=== PATIENT | female | born 1985 | race African-American/Black ===

== ENCOUNTER 2016-06-22 09:01 | Emergency (ER) | payer MEDICAID, OTHER ==
[~2016-06-22] VITALS: Ht 177.8 cm; Wt 272.2 kg
[~2016-06-22 09:01] MED LIST: FURO20TA; METO25TA62 PO; NOR10T; POTA12PO2; [UNRECOGNIZED DRUG - OTHER]
[2016-06-22] MEDS ORDERED: VANCOMYCIN 1GM/250ML D5W 250 ML IV ONE (09:45)
[2016-06-22 10:24] LABS: Basophils # (auto) 0.1 uL; Basophils % (auto) 0.4 % (0.0-2.0); DEFINITIVE VIEW TRANSMISSION; Eosinophils # (auto) 0.3 uL; Eosinophils % (auto) 2.6 % (0.0-7.0); Hematocrit 36.8 % (36.0-46.0); Hemoglobin 11.7 g/dL (12.2-16.2); Lymphocytes # (auto) 2.3 uL; Lymphocytes % (auto) 19.2 % (10.0-50.0); Mean Corpuscular Hemoglobin 25.6 pg (28.0-32.0); Mean Corpuscular Hgb Conc. 31.8 g/dL (32.0-36.0); Mean Corpuscular Volume 80.5 fL (80.0-100.0); Mean Platelet Volume 9.9 fL (7.4-10.4); Monocytes # (auto) 0.4 uL; Monocytes % (auto) 3.5 % (0.0-12.0); Neutrophils % (auto) 74.3 % (37.0-80.0); Platelet Count (auto) 405 10^3/uL (140-450); Red Cell Distribution Width 19.4 % (11.6-16.0); White Blood Cell 12.1 10^3/uL (4.4-10.8)
[2016-06-22 10:27] LABS: INR 1.02 (0.9-1.15); Partial Thromboplastin Time 27.8 sec (22.64-33.71); Prothrombin Time 10.5 sec (9.37-12.3)
[2016-06-22 10:44] LABS: B-Type Natriuretic Peptide 5.42 pg/mL (0-100)
[2016-06-22 10:47] LABS: Temperature: 21.4 C (20.0-25.0)
[2016-06-22] MEDS ORDERED: ONDANSETRON HCL 4 MG/2 ML VIAL IV ONE (11:30)
[2016-06-22] MEDS ORDERED: MORPHINE SULFATE 4 MG/ML SYRG IV ONE (11:30)
[2016-06-22 11:50] LABS: Albumin 3.2 g/dL (3.4-5.0); Alkaline Phosphatase 93 U/L (45-117); Anion Gap 10 (5-15); BUN/Creatinine Ratio 12.9; Bilirubin, Total 0.8 mg/dL (0.2-1.0); Blood Urea Nitrogen 13 mg/dL (7-18); Calcium 8.8 mg/dL (8.5-10.1); Carbon Dioxide 29 mmol/L (21-32); Chloride 103 mmol/L (98-107); GFR African American 82 mL/min; GFR Non-African American 68 mL/min; Glucose 107 mg/dL (74-106); Potassium 3.9 mmol/L (3.5-5.1); Sodium 142 mmol/L (136-145); Total Protein 9.1 g/dL (6.4-8.2)
[2016-06-22 12:25] LABS: Aspartate Aminotransferase 9 U/L (15-37)
[2016-06-22 12:36] LABS: Anisocytosis Slight; Giant Platelets Few; Hypochromia Slight; Platelet Estimate Adequate
[2016-06-22 13:49] LABS: Urine Bilirubin Negative (Negative); Urine Blood Negative /uL (Negative); Urine Color Yellow (Yellow); Urine Glucose Normal (Normal); Urine Ketone Negative (Negative); Urine Mucus FEW (None Seen); Urine Nitrite Negative (Negative); Urine RBC <1 /hpf (0 - 4); Urine Squamous Epithelial Cell FEW /hpf (<5); Urine Urobilinogen Normal (Negative)
[2016-06-22 17:15] VITALS: BP 143/70
== END 2016-06-22 17:22 | disposition short-term general hospital (02) ==
LOC: ER 09:02
DX: I89.0 Lymphedema, not elsewhere classified (principal); I11.0 Hypertensive heart disease with heart failure; I50.9 Heart failure, unspecified; Z88.0 Allergy status to penicillin; Z88.1 Allergy status to other antibiotic agents; Z88.6 Allergy status to analgesic agent
CPT/HCPCS: 36415; 71010; 80053; 81001; 83605; 83880; 84484; 85025; 85610; 85730; 87040; 93971; 96365; 96366; 96375; 99285; J2270; J2405; J3370

== ENCOUNTER 2016-08-25 00:17 | Emergency (ER) | payer MEDICAID ==
[~2016-08-25] VITALS: Ht 177.8 cm; Wt 249.5 kg
[2016-08-25] MEDS ORDERED: ONDANSETRON HCL 4 MG/2 ML VIAL IV ONE ×2 (01:00→08:30)
[2016-08-25] MEDS ORDERED: MORPHINE SULFATE 4 MG/ML SYRG IV ONE ×2 (01:00→08:00)
[2016-08-25 01:35] LABS: Basophils # (auto) 0.7 uL; Basophils % (auto) 4.1 % (0.0-2.0); DEFINITIVE VIEW TRANSMISSION; Eosinophils # (auto) 0.1 uL; Eosinophils % (auto) 0.5 % (0.0-7.0); Hematocrit 37.4 % (36.0-46.0); Hemoglobin 11.7 g/dL (12.2-16.2); Lymphocytes # (auto) 3.4 uL; Mean Corpuscular Hemoglobin 25.7 pg (28.0-32.0); Mean Corpuscular Hgb Conc. 31.3 g/dL (32.0-36.0); Mean Corpuscular Volume 82.2 fL (80.0-100.0); Mean Platelet Volume 9.2 fL (7.4-10.4); Monocytes # (auto) 0.7 uL; Monocytes % (auto) 4.3 % (0.0-12.0); Neutrophils # (auto) 11.3 uL; Neutrophils % (auto) 70.1 % (37.0-80.0); Platelet Count (auto) 356 10^3/uL (140-450); SUSPECT VIEW TRANSMISSION; White Blood Cell 16.2 10^3/uL (4.4-10.8)
[2016-08-25 01:52] LABS: Partial Thromboplastin Time 27.8 sec (22.64-33.71); Prothrombin Time 10.9 sec (9.37-12.3)
[2016-08-25 01:53] LABS: Albumin 3.3 g/dL (3.4-5.0); BUN/Creatinine Ratio 16.2; Calcium 9.2 mg/dL (8.5-10.1); Potassium 3.3 mmol/L (3.5-5.1)
[2016-08-25 01:56] LABS: Bilirubin, Total 1.2 mg/dL (0.2-1.0); Total Protein 9.4 g/dL (6.4-8.2)
[2016-08-25] MEDS ORDERED: ACETAMINOPHEN 325 MG TAB PO ONE ×2 (03:02→03:15)
[2016-08-25] MEDS ORDERED: SODIUM CHLORIDE 0.9% 1,000 ML IV ONE ×2 (03:45→05:30)
[2016-08-25] MEDS ORDERED: VANCOMYCIN 1GM/250ML D5W 250 ML IV ONE (03:45)
[2016-08-25 04:37] LABS: Lactic Acid w/Reflex 2.7 mmol/L (0.4-2.0)
[2016-08-25 04:43] LABS: REFLEX LACTIC ACID YES OR NO 22.9
[2016-08-25 07:09] LABS: Lactic Acid w/Reflex 2.2 mmol/L (0.4-2.0)
[2016-08-25 07:13] LABS: REFLEX LACTIC ACID YES OR NO NO
[2016-08-25 09:05] VITALS: BP 103/64
== END 2016-08-25 09:35 | disposition short-term general hospital (02) ==
LOC: ER 00:17 → EDBD 00:17 → ER 09:35
DX: I89.0 Lymphedema, not elsewhere classified (principal); L02.416 Cutaneous abscess of left lower limb; L03.116 Cellulitis of left lower limb; Z68.45 Body mass index [BMI] 70 or greater, adult; E66.01 Morbid (severe) obesity due to excess calories; I11.0 Hypertensive heart disease with heart failure; I50.9 Heart failure, unspecified; Z88.0 Allergy status to penicillin; Z88.1 Allergy status to other antibiotic agents; Z88.6 Allergy status to analgesic agent; Z79.899 Other long term (current) drug therapy
CPT/HCPCS: 36415; 80053; 83605; 85025; 85610; 85730; 87040; 93971; 94761; 96365; 96375; 96376; 99285; J2270; J2405; J3370; J7030

== ENCOUNTER 2016-09-26 00:51 | Emergency (ER) | payer MEDICAID ==
[~2016-09-26] VITALS: Ht 177.8 cm; Wt 244.9 kg
[2016-09-26] MEDS ORDERED: MORPHINE SULFATE 4 MG/ML SYRG IM ONE (04:30)
[2016-09-26 04:36] VITALS: BP 131/83
== END 2016-09-26 06:02 | disposition home or self-care (01) ==
LOC: ER 00:51
DX: S43.402A Unspecified sprain of left shoulder joint, initial encounter (principal); I11.0 Hypertensive heart disease with heart failure; I50.9 Heart failure, unspecified; Z90.89 Acquired absence of other organs; Z88.0 Allergy status to penicillin; Z88.1 Allergy status to other antibiotic agents; W22.8XXA Striking against or struck by other objects, initial encounter; Y93.89 Activity, other specified; Y99.8 Other external cause status; Y92.89 Other specified places as the place of occurrence of the external cause
CPT/HCPCS: 73030; 96372; 99284; J2270

== ENCOUNTER 2016-10-04 18:18 | Emergency (ER) | payer MEDICAID ==
[~2016-10-04] VITALS: Ht 177.8 cm; Wt 245.4 kg
[2016-10-04 18:25] VITALS: BP 119/77
== END 2016-10-04 20:38 | disposition left against medical advice (07) ==
LOC: EDBD 18:18 → ER 18:20
DX: R55 Syncope and collapse (principal); Z53.21 Procedure and treatment not carried out due to patient leaving prior to being seen by health care provider

== ENCOUNTER 2017-01-21 01:02 | Emergency (ER) | payer MEDICAID ==
[~2017-01-21] VITALS: Ht 175.3 cm; Wt 181.4 kg
[2017-01-21] MEDS ORDERED: ACETAMINOPHEN 325 MG TAB PO ONE (01:30)
[2017-01-21] MEDS ORDERED: SODIUM CHLORIDE 0.9% 1,000 ML IV ONE (03:15)
[2017-01-21 03:19] LABS: Eosinophils # (auto) 0.2 uL; Lymphocytes # (auto) 3.3 uL; Monocytes # (auto) 0.7 uL; Monocytes % (auto) 4.5 % (0.0-12.0)
[2017-01-21 03:21] LABS: Basophils # (auto) 0.2 uL; Basophils % (auto) 1.2 % (0.0-2.0); Eosinophils % (auto) 1.1 % (0.0-7.0); Hematocrit 33.6 % (36.0-46.0); Hemoglobin 10.8 g/dL (12.2-16.2); Lymphocytes % (auto) 19.9 % (10.0-50.0); Mean Corpuscular Hgb Conc. 32.1 g/dL (32.0-36.0); Neutrophils % (auto) 73.3 % (37.0-80.0); Platelet Count (auto) 377 10^3/uL (140-450); White Blood Cell 16.3 10^3/uL (4.4-10.8)
[2017-01-21 03:36] LABS: BUN/Creatinine Ratio 14.9; Calcium 8.9 mg/dL (8.5-10.1); Potassium 3.3 mmol/L (3.5-5.1)
[2017-01-21 03:39] LABS: Bilirubin, Total 0.7 mg/dL (0.2-1.0); Total Protein 8.7 g/dL (6.4-8.2)
[2017-01-21 06:45] VITALS: BP 118/62
== END 2017-01-21 05:51 | disposition home or self-care (01) ==
LOC: EDBD 01:02 → ER 01:06
DX: J06.9 Acute upper respiratory infection, unspecified (principal); D72.829 Elevated white blood cell count, unspecified; L03.116 Cellulitis of left lower limb
CPT/HCPCS: 36415; 71010; 80053; 83690; 85025; 96360; 99285; J7030